=== PATIENT | female | born 1990 | race Caucasian/White ===

== ENCOUNTER 2016-08-04 22:29 | Emergency (ER) | payer MEDICAID ==
[~2016-08-04] VITALS: Ht 167.6 cm; Wt 68.0 kg
[~2016-08-04 22:29] MED LIST: BACT800T5 PO; CLIN1CAP5 PO; DICL75 PO; IBUP800 PO; TRAM50 PO
[2016-08-04 22:33] VITALS: BP 98/64; PULSE 74; RESP 16; TEMP 97.6; O2SAT 98
--- NOTE | 2016-08-04 22:38 | PD ---
Physical Exam Time Seen by Provider: 22:37 Narrative 26yo F, 10 weeks , w c/o a lot of vomiting. Denies abd pain, cramping, vag bleeding. Just a lot of nausea and vomiting. Denies fever. Patient stable. Patient seen in triage. Awaiting bed placement. Data Data Last Documented VS Vital Signs Date Time Temp Pulse Resp B/P Pulse Ox O2 Delivery O2 Flow Rate FiO2 08/04/16 22:33 97.6 74 16 98/64 98 MDM Supervised Visit with J CARLOS: Kirstie Sarmiento Aug 04, 2016 22:38
[2016-08-04] MEDS ORDERED: REGL10TA5 PO (23:38)
--- NOTE | 2016-08-04 23:39 | PD ---
HPI Chief Complaint: Related Problem Time Seen by Provider: 23:36 Travel History International Travel<30 days: No Contact w/Intl Traveler<30days: No Traveled to known affect area: No History of Present Illness HPI Patient is a 26-year-old female who presents to emergency room 10 weeks with c/o of nausea and vomiting. Patient denies abdominal pain, denies any vaginal bleeding or cramping. Denies dysuria, urinary urgency or frequency. Patient denies any fevers or chills, patient requesting a prescription for medications for nausea at this time. Patient with no other complaints. 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 Reported Meds & Prescriptions Reported Meds & Active Scripts Active Reglan (Metoclopramide HCl) 10 Mg Tab 10 Mg PO QID Ultram (Tramadol HCl) 50 Mg Tab 50 Mg PO Q6HR PRN FOR PAIN Bactrim DS (Sulfamethoxazole-Trimethoprim DS) 1 Tab Tab 1 Tab PO BID 10 Days Clindamycin Hcl (Clindamycin HCl) 150 Mg Cap 2 Tab PO Q8H [address] (Diclofenac Sod) 75 Mg Tab 75 Mg PO BID PRN Motrin 800 Mg Tab (Ibuprofen) 800 Mg Tab 800 Mg PO Q8H PRN Clindamycin Hcl (Clindamycin HCl) 150 Mg Cap 300 Mg PO Q8H 10 Days Review of Systems General / Constitutional: No: Fever Eyes: No: Visual changes HENT: No: Headaches Cardiovascular: No: Chest Pain or Discomfort Respiratory: No: Shortness of Breath Gastrointestinal: Positive: Nausea, Vomiting, No: Abdominal Pain Genitourinary: No: Dysuria Musculoskeletal: No: Pain Skin: No Rash Neurologic: No: Weakness Psychiatric: No: Depression Endocrine: No: Polydipsia Hematologic/Lymphatic: No: Easy Bruising Physical Exam Narrative GENERAL: Well-nourished, well-developed patient. SKIN: Focused skin assessment warm/dry. HEAD: Normocephalic. EYES: No scleral icterus. No injection or drainage. NECK: Supple, trachea midline. No JVD or lymphadenopathy. CARDIOVASCULAR: Regular rate and rhythm without murmurs, gallops, or rubs. RESPIRATORY: Breath sounds equal bilaterally. No accessory muscle use. GASTROINTESTINAL: Abdomen soft, non-tender, nondistended. MUSCULOSKELETAL: No cyanosis, or edema. BACK: Nontender without obvious deformity. No CVA tenderness. Data Data Last Documented VS Vital Signs Date Time Temp Pulse Resp B/P Pulse Ox O2 Delivery O2 Flow Rate FiO2 08/04/16 22:33 97.6 74 16 98/64 98 Orders Metoclopramide (Reglan) (08/04/16 23:45) [facility] Medical Decision Making Medical Screen Exam Complete: Yes Emergency Medical Condition: Yes Interpretation(s) Vital Signs Date Time Temp Pulse Resp B/P Pulse Ox O2 Delivery O2 Flow Rate FiO2 08/04/16 22:33 97.6 74 16 98/64 98 Differential Diagnosis Nausea secondary to , electrolyte abnormalities Narrative Course 26-year-old female who is 10 weeks , presents to the emergency room with request for script for nausea medication. 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 Patient denies any abdominal pain, cramping, vaginal bleeding or discharge. Patient requested no lab work or studies performed. Patient requesting a prescription for nausea medications and discharged home. Signs and symptoms of when to return to the emergency room was reviewed patient in detail. Understands that she may return to the emergency room at any time for further evaluation and workup Diagnosis Primary Impression: Nausea & vomiting Qualified Code: R11.2 - Non-intractable vomiting with nausea, unspecified vomiting type Patient Instructions: General Instructions Med/Other Pt SpecificInfo: Prescription(s) given Scripts Metoclopramide (Reglan)10 Mg Tab10 Mg PO QID #30 TAB Ref 0 Prov:Tiff Miranda DO 08/04/16 Disposition: 01 DISCHARGE HOME Condition: Stable Tiff Miranda DO Aug 04, 2016 23:38
[2016-08-04] MEDS ORDERED: METOCLOPRAMIDE HCL 10 MG TAB PO ONE (23:45)
== END 2016-08-04 23:49 | disposition home or self-care (01) ==
LOC: NEPD 22:29
DX: O26.91 Pregnancy related conditions, unspecified, first trimester (principal); R11.2 Nausea with vomiting, unspecified; Z3A.10 10 weeks gestation of pregnancy
CPT/HCPCS: 99283